=== PATIENT | female | born 2000 | race Two or more races ===

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

== ENCOUNTER 2023-10-25 16:56 | Emergency (ER) | payer MEDICAID ==
[~2023-10-25] VITALS: Ht 149.9 cm; Wt 55.6 kg
[~2023-10-25 16:56] MED LIST: PREN-96 PO; [UNRECOGNIZED DRUG - CODE] SC
[2023-10-25 19:08] VITALS: BP 111/62; PULSE 90; RESP 16; TEMP 97.8; O2SAT 98
[2023-10-25] MEDS ORDERED: ACET500T58 PO (19:18)
[2023-10-25] MEDS ORDERED: AMOX875T4 PO (19:18)
[2023-10-25] MEDS: ACETAMINOPHEN 325 MG TAB PO ONE (20:21)
[2023-10-25] MEDS: cefTRIAXone SOD 1,000 MG VL IM ONE (20:22)
== END 2023-10-25 20:29 | disposition home or self-care (01) ==
LOC: ER 16:56
DX: O26.892 Other specified pregnancy related conditions, second trimester (principal); H66.91 Otitis media, unspecified, right ear; Z3A.17 17 weeks gestation of pregnancy
CPT/HCPCS: 96372; 99283; J0696